=== PATIENT | male | born 1950 | race Caucasian/White ===

== ENCOUNTER 2017-12-04 10:20 | Day surgery (SDC) | payer OTHER ==
[~2017-12-04] VITALS: Ht 175.3 cm; Wt 96.6 kg
[~2017-12-04 10:20] MED LIST: ADVOCARE SUPPLEMENTS; Aspirin EC81 MG PO; CALCIUM CITRATE PO; COQ1050 MG PO; Chondroitin Su250 MG PO; Fish Oil 10001000 MG PO; VITAMIN D31 ML PO
[2017-12-04] MEDS ORDERED: ACET500 (11:05)
== END 2017-12-04 22:47 | disposition home or self-care (01) ==
LOC: ORSCMMR 10:20 → ORD 13:15 → ORSCMMR 13:15 → ORD 13:30 → ORSCMMR 14:14
PROVIDERS: Surgery
PROC: 8E0W4CZ Robotic Assisted Procedure of Trunk Region, Percutaneous Endoscopic Approach (ICD-10-PCS; principal; 2017-12-04 13:15)
PROC: 0YU54JZ Supplement Right Inguinal Region with Synthetic Substitute, Percutaneous Endoscopic Approach (ICD-10-PCS; principal; 2017-12-04 13:15)
DX: K40.30 Unilateral inguinal hernia, with obstruction, without gangrene, not specified as recurrent (principal); Z79.82 Long term (current) use of aspirin
CPT/HCPCS: 49650; S2900; C1781; J0690; J2250; J2405; J3010; J7030; J7120

== ENCOUNTER 2018-09-22 06:18 | Day surgery (SDC) | payer OTHER ==
[~2018-09-22] VITALS: Ht 177.8 cm; Wt 96.1 kg
[~2018-09-22 06:18] MED LIST changes: +ACET500; +CETI5 PO
[2018-09-22] MEDS ORDERED: LEVOTHYROXINE PO (06:36)
[2018-09-22] MEDS ORDERED: Percocet 5-3251 EACH PO (15:53)
== END 2018-09-22 16:10 | disposition home or self-care (01) ==
LOC: ORSCMMR 06:18 → ORD 07:30 → ORSCMMR 07:30 → SURS 11:31 → ORSCMMR 16:10 → SURS 16:10
PROVIDERS: Surgery
PROC: 0WUF0JZ Supplement Abdominal Wall with Synthetic Substitute, Open Approach (ICD-10-PCS; principal; 2018-09-22 07:30)
DX: K43.0 Incisional hernia with obstruction, without gangrene (principal); Z79.82 Long term (current) use of aspirin
CPT/HCPCS: C1781; J0690; J1100; J1885; J2250; J2405; J2704; J3010; J7120

== ENCOUNTER 2020-09-03 06:06 | Day surgery (SDC) | payer OTHER ==
[~2020-09-03] VITALS: Ht 175.3 cm; Wt 97.6 kg
[~2020-09-03 06:06] MED LIST changes: +ATOR80 PO; +LEVOTHYROXINE PO; +LOSA50 PO; +METO25ER PO; +NITR.4SL SL; +Percocet 5-3251 EACH PO; +Plavix75 MG PO
--- NOTE | 2020-09-03 07:09 | NUR ---
PT AMBULATES TO [facility]. Patient confirms NPO status and agrees with scheduled surgery. History, Chart, Medications and Allergies reviewed before start of procedure. Lungs clear T/O to Auscultation. Patient States Post-Procedure ride home has been arranged. + VOID.
--- NOTE | 2020-09-03 10:13 | NUR ---
PT TO BATHROOM VIA WHEELCHAIR. SLIGHTLY UNSTEADY BUT DECLINES ASSISTANCE IN BATHROOM. PT BACK TO [facility]. REPORTS PAIN IS IMPROVING. REQUESTS CHOCOLATE PUDDING.
--- NOTE | 2020-09-03 10:30 | NUR ---
PT HAS TOLERATED FOOD AND FLUIDS. REPORTS PAIN IMPROVING. REVIEWED DISCHARGE INSTRUCTIONS WITH PATIENT. Dressing to procedure site clean, dry, intact with no visible drainage, swelling, erythema or bruising noted
--- NOTE | 2020-09-03 10:35 | NUR ---
Discharged via wheelchair to private car for ride home.
== END 2020-09-03 10:35 | disposition home or self-care (01) ==
LOC: ORSCMMR 06:06 → ORD 07:30 → ORSCMMR 07:30
PROVIDERS: Surgery
PROC: 0WUF0JZ Supplement Abdominal Wall with Synthetic Substitute, Open Approach (ICD-10-PCS; principal; 2020-09-03 07:30)
DX: K42.9 Umbilical hernia without obstruction or gangrene (principal); I10 Essential (primary) hypertension; I25.2 Old myocardial infarction; I25.10 Atherosclerotic heart disease of native coronary artery without angina pectoris; E78.5 Hyperlipidemia, unspecified; E03.9 Hypothyroidism, unspecified; Z79.899 Other long term (current) drug therapy
CPT/HCPCS: A9270; C1781; J0690; J1100; J1885; J2250; J2370; J2405; J2704; J2710; J3010; J7120